=== PATIENT | male | born 1970 | race Caucasian/White ===

== ENCOUNTER 2016-11-01 16:43 | Emergency (ER) | payer BC ==
[~2016-11-01] VITALS: Ht 160 cm; Wt 64.5 kg
[~2016-11-01 16:43] MED LIST: ADVAIR 250/501 DISK IH
[2016-11-01 18:28] VITALS: BP 119/83
== END 2016-11-01 18:29 | disposition home or self-care (01) ==
LOC: EME 16:43
PROC: 0HQ1XZZ Repair Face Skin, External Approach (ICD-10-PCS; principal; 2016-11-01)
DX: S01.81XA Laceration without foreign body of other part of head, initial encounter (principal); W20.8XXA Other cause of strike by thrown, projected or falling object, initial encounter; Y92.008 Other place in unspecified non-institutional (private) residence as the place of occurrence of the external cause; Z87.891 Personal history of nicotine dependence
CPT/HCPCS: 99281; 99284

== ENCOUNTER 2017-07-01 08:42 | Observation (INO) | payer BC ==
[~2017-07-01] VITALS: Ht 160 cm; Wt 64.7 kg
[2017-07-01 09:36] LABS: HEMATOCRIT 48.6 % (38.0-50.0); MCH 29.3 PG (29.0-34.0); MCHC 32.9 G/DL (30.0-36.0); MCV 88.8 FL (86-99); RBC DIS.WIDTH-CV 13.4 % (11.8-14.6); RBC DIS.WIDTH-SD 43.6 % (39-53); RED BLOOD COUNT 5.47 M/uL (4.00-5.50); WHITE BLOOD COUNT 8.4 K/uL (4.1-10.2)
[2017-07-01 09:45] LABS: CHLORIDE 107 mEq/L (99-109); POTASSIUM 4.6 mEq/L (3.7-5.4); SODIUM 143 mEq/L (136-147)
[2017-07-01 09:47] LABS: GLUCOSE 103 mg/dL (70-99)
[2017-07-01 09:51] LABS: GFR ESTIMATE (CALCULATED) > 59 mL/min/ (58.99-99999)
[2017-07-01 09:52] LABS: UREA NITROGEN (BUN) 16 mg/dL (9-23)
[2017-07-01 09:56] LABS: TROP-I INTERPRETATION NEGATIVE; TROPONIN-I < 0.01 ng/mL (0.0-0.30)
[2017-07-01 10:31] LABS: PLAT.SUFFICIENCY ADEQUATE; PLATELET COUNT 238 K/uL (156-360)
[2017-07-01 15:28] VITALS: BP 152/96
[2017-07-01 16:22] LABS: TROP-I INTERPRETATION NEGATIVE; TROPONIN-I < 0.01 ng/mL (0.0-0.30)
[2017-07-01] MEDS ORDERED: PROAIR HFA8.5 GM IH (17:05)
[2017-07-01] MEDS ORDERED: MOTRIN800 MG PO (17:06)
[2017-07-01] MEDS ORDERED: ALEVE220 MG PO (17:07)
[2017-07-01 19:28] LABS: D-DIMER ELISA < 150.00 ng/mLDDU (<230)
[2017-07-01 20:22] VITALS: BP 120/77
[2017-07-01 22:42] LABS: TROP-I INTERPRETATION NEGATIVE; TROPONIN-I < 0.01 ng/mL (0.0-0.30)
[2017-07-01 23:16] VITALS: BP 120/78
[2017-07-01 23:39] LABS: ABS NEUTROPHIL COUNT 4.9; ATYPICAL LYMPHOCYTE 19.3 %; EOSINOPHIL ABS CT 0.1; EOSINOPHILS 1.7 % (0-5.0); LYMPHOCYTES 11.4 % (15.0-45.0); MACROCYTES 1+; MICROCYTOSIS 1+; MONOCYTES 8.8 % (0-9.0); SEG.NEUTROPHILS 58.8 % (46.0-76.0); TEAR DROP CELLS 1+
[2017-07-02 03:31] VITALS: BP 108/58
[2017-07-02 07:40] VITALS: BP 121/88
[2017-07-02 11:58] VITALS: BP 131/78
[2017-07-02] MEDS ORDERED: ASPIR-LOW81 MG PO (15:12)
[2017-07-02] MEDS ORDERED: LISINOPRIL10 MG PO (15:12)
[2017-07-02] MEDS ORDERED: PREDNISONE10 MG PO (15:26)
[2017-07-02 15:56] VITALS: BP 133/70
== END 2017-07-02 17:55 | disposition home or self-care (01) ==
LOC: EME 08:42 → 5WEST 11:33 → EDOF 11:33 → ENRESERV 11:39 → 5WEST 15:13
PROVIDERS: Internal Medicine; Internal Medicine Cardiovascular Disease
DX: R07.89 Other chest pain (principal); R94.31 Abnormal electrocardiogram [ECG] [EKG]; R06.02 Shortness of breath; J45.909 Unspecified asthma, uncomplicated; I10 Essential (primary) hypertension; Z87.891 Personal history of nicotine dependence; Z85.858 Personal history of malignant neoplasm of other endocrine glands; Z92.21 Personal history of antineoplastic chemotherapy; Z88.5 Allergy status to narcotic agent
CPT/HCPCS: 71046; 78452; 80048; 84484; 85007; 85027; 85379; 93005; 93017; 93306; 94640; 94640 76; 94760; 99202; 99281; 99284; A9500; G0378; J7512

== ENCOUNTER → 2017-07-23 | Outpatient (CLI) | payer BC ==
[~2017-07-23] MED LIST changes: +ALEVE220 MG PO; +ASPIR-LOW81 MG PO; +LISINOPRIL10 MG PO; +MOTRIN800 MG PO; +PREDNISONE10 MG PO; +PROAIR HFA8.5 GM IH
== END | disposition home or self-care (01) ==
LOC: RES 07:52
DX: J98.4 Other disorders of lung (principal)
CPT/HCPCS: 94060; 94726; 94729